=== PATIENT | male | born 1950 | race Caucasian/White ===

== ENCOUNTER 2016-11-10 16:49 | Emergency (ER) | payer MEDICARE, OTHER ==
[~2016-11-10] VITALS: Ht 172.7 cm; Wt 82.0 kg
[~2016-11-10 16:49] MED LIST: ASPI-535 PO; CHOLESTEROL PO; GLIMEPIRIDE PO; LOSARTAN PO; METFORMIN PO; METOPROLOL PO; PIOGLITAZONE PO
[2016-11-10 16:52] VITALS: Ht 172.7 cm; Wt 82.0 kg
[2016-11-10] MEDS ORDERED: FLUORESCEIN STRIP LEFT EYE ONE (18:00)
[2016-11-10] MEDS ORDERED: TETRACAINE 0.5% 4 ML OPH LEFT EYE ONE (18:00)
[2016-11-10] MEDS ORDERED: KETO5DRO79 LEFT EYE (18:32)
[2016-11-10] MEDS ORDERED: POLY10DR LEFT EYE (18:32)
--- NOTE | 2016-11-10 18:43 | ERD ---
ER Documentation Chief Complaint Date/Time DATE: 11/10/16 TIME: 18:35 Chief Complaint left eye pain since yesterday HPI 66-year-old male complaining of left eye pain and redness since yesterday afternoon. Patient stated that he was walking outside, when wind blew some dirt into his left eye. He felt like something is in his eye, and his eyes throbs. Have used [id number] eye irritation drops without relief. Denies blurry vision. Denies eye drainage. ROS All systems reviewed and are negative except as per history of present illness. Medications Home Meds Active Scripts Polymyxin/Trimethoprim* (Polytrim* Eye Drops) 10 Ml Drops, 1 DROP LEFT EYE QID for 5 Days, EA Prov:AXEL MCGOWAN. DIRECTOR DIGITAL CATALOGUE 11/10/16 Ketorolac Tromethamine Oph (Ketorolac Tromethamine Oph) 0.4%-5 Ml Opht Drops, 1 DROP LEFT EYE QID Y for PAIN, #1 EA Prov:AXEL MCGOWAN. DIRECTOR DIGITAL CATALOGUE 11/10/16 Reported Medications [Cholesterol] No Conflict Check, PO DAILY 07/31/15 Aspirin Ec (Aspir 81) 81 Mg Tablet.dr, 81 MG PO DAILY, #30 TAB 07/31/15 [Glimepiride] No Conflict Check, PO DAILY 07/31/15 [Metformin] No Conflict Check, PO DAILY 07/31/15 [Pioglitazone] No Conflict Check, PO DAILY 07/31/15 [Losartan] No Conflict Check, PO DAILY 07/31/15 [Metoprolol] No Conflict Check, PO DAILY 07/31/15 Allergies Allergies: Coded Allergies: No Known Allergy (Verified , 07/31/15) PMhx/Soc History of Surgery: Yes (L INGUINAL HERNIA REPAIR) Anesthesia Reaction: No Hx Neurological Disorder: No Hx Respiratory Disorders: No Hx Cardiac Disorders: Yes (HTN) Hx Psychiatric Problems: No Hx Miscellaneous Medical Probl: Yes (HIGH CHOLESTEROL, dm) Hx Alcohol Use: Yes (RARELY) Hx Substance Use: No Hx Tobacco Use: No Smoking Status: Never smoker Physical Exam Vitals Vital Signs Date Time Temp Pulse Resp B/P Pulse Ox O2 Delivery O2 Flow Rate FiO2 11/10/16 16:52 98.2 79 18 149/73 96 Physical Exam General: Well-developed, well-nourished, conscious and coherent, in no distress Skin: Warm and dry without rash, good texture and turgor Head: Normocephalic without evidence of trauma Eyes: Pupils equal, round, and reactive to light; extraocular movements are intact. Left eye injected. Upper eyelid everted, no free foreign body noted. There is a black spot noted at 3 o'clock position of the cornea of the left eye , no rust ring. Neck: Supple without meningismus or adenopathy. Carotids are equal. Trachea midline. No bruits or JVD Chest: Normal AP diameter. Good expansion without retractions. Nontender. Lungs are clear to auscultate bilaterally with good tidal volume Heart: Regular rate and rhythm. No murmur, rub, or gallops heard Neuro: Alert and oriented 4, GCS 15. Cranial nerves grossly intact. Motor and sensory exams nonfocal. Moves all extremities. Speech clear. Gait normal Results 24 hrs Current Medications Medications (Trade) Dose Ordered Sig/Ghassan Route PRN Reason Start Time Stop Time Status Last Admin Dose Admin Tetracaine HCl (Tetracaine 0.5% Steri-Unit Miranda) 1 drop ONCE ONCE LEFT EYE 11/10/16 18:00 5 18:01 DC Fluorescein Sodium ([id number]) 1 strip ONCE ONCE LEFT EYE 11/10/16 18:00 11/10/16 18:01 DC Procedures/MDM Well-appearing 66-year-old male presented ED with foreign body sensation in his left eye. Tetracaine ophthalmic solution was instilled into patient's left eye. Fluoresceins dye was then applied. Patient was examined under Wood's lamp. A punctate dye uptake is noted at the position of the back spot. Patient appeared to have a embedded foreign body in his cornea. I attempt to remove the foreign body with the shaft of a tuberculin needle, I was able to catch the edge of the foreign body, but unable to remove it completely. There is no rust ring around the foreign body, I doubt it is a metallic object. Patient given prescription of ketorolac ophthalmic for pain, and Polytrim ophthalmic for antibiotic prophylaxis. Patient also given referral to [facility] for follow-up tomorrow. Patient appears well, stable for discharge and outpatient management. Medical decision making shared with patient and family. Education provided to patient and family. Patient and family expressed understanding of the plan. Medications on discharge: Ketorolac ophthalmic, Polytrim ophthalmic. Follow-up: [employer] tomorrow The case was reviewed and discussed with Dr. Bravo, who agrees with the plan of care including labs, treatment, and advanced imaging as appropriate. Departure Diagnosis: Primary Impression: Corneal foreign body Encounter type: initial encounter Laterality: left Qualified Code: T15.02XA - Corneal foreign body, left, initial encounter Condition: Stable Patient Instructions: Foreign Object in the Cornea Referrals: [facility] Hours: Mon - Fri 9:00 AM - 5:00 PM Additional Instructions: Specialist:Jeremias tiene steven condicin mdica que requiere que juana a un optomologo manana. AXEL MCGOWAN NP November 10, 2016 18:43
[2016-11-10 18:46] VITALS: BP 128/76; PULSE 68; RESP 20; TEMP 98.2
== END 2016-11-10 18:46 | disposition home or self-care (01) ==
LOC: FTE 16:49
DX: T15.02XA Foreign body in cornea, left eye, initial encounter (principal); E11.9 Type 2 diabetes mellitus without complications; I10 Essential (primary) hypertension; X58.XXXA Exposure to other specified factors, initial encounter; Y92.89 Other specified places as the place of occurrence of the external cause; Z79.82 Long term (current) use of aspirin; Z79.84 Long term (current) use of oral hypoglycemic drugs